=== PATIENT | female | born 1965 | race Caucasian/White ===

== ENCOUNTER 2019-01-14 11:31 | Day surgery (SDC) | payer BC ==
--- NOTE | 2019-01-14 09:20 | HP ---
AMENDED REPORT: DATE OF SURGERY: 01/14/2019 HISTORY OF PRESENT ILLNESS: The patient is a 53 year-old with gallstones since 2006, recommended having cholecystectomy several years ago so she decided not to follow up. Recently she had increased symptoms, occasional nausea and vomiting. No specific food trigger. She has seen Dr. Moseley before. She is on some medication for auto-immune, hepatitis. The patient had liver biopsy in the past. She had some duct sclerosis in the past. PAST MEDICAL HISTORY: As above. PAST SURGICAL HISTORY: Hiatal hernia repair. Abdominal hernia repair x2 in the past. Liver biopsy in the past. Tonsillectomy. Exploration of the abdomen in the past. MEDICATIONS: Flexeril, Ambien, Ursodiol, Imuran, Ocaliva, vitamin D. ALLERGIES: DEMEROL. FAMILY HISTORY: Hypertension, Lupus. SOCIAL HISTORY: No smoking or alcohol abuse. REVIEW OF SYSTEMS: Fourteen systems reviewed per admission assessment. No chest pain or palpitations other systems negative or noncontributory as above and per preadmission questionnaire. She had recently had elevated alkaline phosphatase but otherwise normal bilirubin. PHYSICAL EXAMINATION: GENERAL: No acute distress. HEENT: Sclerae nonicteric. NECK: No JVD. CHEST: Equal excursion, nonlabored breathing. CVS: Regular rate and rhythm. ABDOMEN: Soft. No peritoneal signs. EXTREMITIES: No significant edema. NEURO: Alert, oriented, moving extremities symmetrically. No gross motor deficits noted. IMPRESSION: Symptomatic cholelithiasis, chronic cholecystitis. She has got some chronic liver disease. I feel she will benefit from cholecystectomy. She is high risk for complications given her history of cirrhosis, chronic liver disease and prior abdominal surgeries. She was explained the risk and benefits in detail not limited to bleeding or infection, risk of trocar injury or hernia, small risk of bowel, bladder or blood vessel injury, small risk of bile leak, bile duct injury, retained stone or sludge possibly requiring further procedure either open or ERCP, general risk of anesthesia, deep venous thrombosis, pulmonary embolism, pneumonia, perioperative risk of aches, pains, bloating, constipation and/or loose stools possibly even chronic in nature. She understands and agrees to the planned procedure, will proceed with laparoscopic cholecystectomy with possible open as an outpatient. She understands she is high risk of open procedure given her prior multiple surgeries and liver disease but not limited to.
[~2019-01-14 11:31] MED LIST: Lactated Ringers 1,000 ML IV ONE; MEFOXIN 2 GM PREMIX** 2 GM/50 ML ML IV ONE; MEFOXIN 2 GM PREMIX** 2 GM/50 ML ML IV SCH; Sensorcaine 0.25% 10 ML ONE
[2019-01-14] MEDS ORDERED: SUBLIMAZE 250 MCG/5 ML IV ONE (11:32)
[2019-01-14] MEDS ORDERED: BRIDION 200MG/2ML IV ONE (11:32)
[2019-01-14] MEDS ORDERED: APRESOLINE 20 MG/ML INJ IV ONE (11:32)
[2019-01-14] MEDS ORDERED: BREVIBLOC 100 MG/10 ML IV ONE (11:32)
[2019-01-14] MEDS ORDERED: Zemuron 100 MG/10 ML IV ONE (11:32)
[2019-01-14] MEDS ORDERED: Zofran 4 MG/2 ML VIAL IV ONE (11:32)
[2019-01-14] MEDS ORDERED: LOPRESSOR 5 MG/5 ML INJECTION IV ONE (11:32)
[2019-01-14] MEDS ORDERED: DIPRIVAN 200 MG/20 ML IV ONE (11:32)
[2019-01-14] MEDS ORDERED: SUBLIMAZE 100 MCG/2 ML IV ONE (11:32)
[2019-01-14] MEDS ORDERED: Versed 2 MG/2 ML Injection IV ONE (11:32)
[2019-01-14] MEDS: Lactated Ringers 1,000 ML IV SCH ×2 (11:47→23:04)
[2019-01-14 12:18] LABS: ALBUMIN 4.4 g/dL (3.5-5.0); ANION GAP 14.6 MEQ/L (5-15); BILIRUBIN,TOTAL 0.6 mg/dL (0.2-1.3); Calcium 10.5 mg/dL (8.4-10.2); Creatinine 1 1.04 mg/dL (0.52-1.04); Potassium 4.3 mmol/L (3.5-5.1); Total Protein 8.5 g/dL (6.3-8.2)
[2019-01-14 12:23] LABS: INR 0.98 (0.8-3.0); PROTIME 11.1 SECONDS (9.95-12.35)
[2019-01-14] MEDS ORDERED: SUBLIMAZE 100 MCG/2 ML ONE (15:38)
[2019-01-14] MEDS ORDERED: Zofran 4 MG/2 ML VIAL ONE (15:38)
[2019-01-14] MEDS ORDERED: DILAUDID 2 MG INJECTION ONE (15:39)
--- NOTE | 2019-01-14 15:55 | OP ---
SURGERY DATE/TIME: 01/14/2019 1345 PREOPERATIVE DIAGNOSES: 1) Symptomatic cholelithiasis, chronic cholecystitis. 2) History of chronic liver disease. 3) Obesity. 4) History of prior multiple abdominal surgeries. POSTOPERATIVE DIAGNOSES: 1) Symptomatic cholelithiasis, chronic cholecystitis. 2) History of chronic liver disease. 3) Obesity. 4) History of prior multiple abdominal surgeries. 5) Extensive intra-abdominal adhesions. PROCEDURE: 1) Laparoscopic lysis of adhesions. 2) Laparoscopic cholecystectomy. SURGEON: Dr. Curtis Ryan. ANESTHESIA: General. ESTIMATED BLOOD LOSS: Minimal. INDICATIONS: As noted above. Risks and benefits explained in detail but not limited to and consent obtained. DESCRIPTION OF PROCEDURE AND FINDINGS: The patient was taken to the operating room. General anesthesia induced. Abdomen prepped and draped in the usual sterile fashion. Going just to the left of the prior midline incision, a small transverse incision made. Fascia grasped and pulled upward. Veress needle inserted and tested with saline. Pneumoperitoneum accomplished insufflating opening pressure of 0-15. Once this was accomplished, a 5 mm bladeless port and camera inserted in the right upper quadrant. There was no evidence of any intra-abdominal injury secondary to trocar insertion. Another 5 mm right upper quadrant port and 11 mm epigastric port was later switched to a 12 mm epigastric port. The 5 mm port was placed lateral to the patient's prior mesh hernia repair mid abdomen supraumbilical hernia. The patient had extensive intra-abdominal adhesions. Slowly and carefully omentum plastered up against the chronic liver disease, this is slowly and carefully taken down finally allowing access to chronically inflamed gallbladder this was able to grasped and mobilized upwards however this took another hour of dissection time. Dissection carried posterior, lateral to anterior fashion. There is concrete reaction. She had known gallbladder disease back in 2006, I think she mentioned. Slowly and carefully the cystic duct/infundibular junction slowly and carefully well skeletonized until critical view obtained both anteriorly and posteriorly. Once this was accomplished we elected to use a large clip given extensive inflammatory reaction. A 12 port placed in the epigastrium. Large clip was used clipping the cyst duct and dividing in usual fashion. After the critical view was obtained both anterior and posteriorly, main cystic artery directly on the gallbladder was isolated, clipped x3 and divided. Gallbladder slowly and carefully dissected free from its dense almost concrete attachments to the liver bed staying directly on the gallbladder wall clipping additional oozing side branches off the cystic artery, cystic veins as necessary around the gallbladder wall. Just prior to releasing from final attachments to anterior edge of the liver, there was another duct along the anterior edge of the liver, this was additionally clipped. Just prior to releasing from final attachments to anterior edge of the liver the liver bed re-inspected. Clips noted in place cystic duct and cystic artery stumps. There were no signs of any active bleeding or bile leakage. It was felt there was no benefit from drain placement. Gallbladder released from final attachments anterior edge of the liver placed in a Pleatman sac. Fascia in the epigastrium slightly spread to allow the Pleatman sac and gallbladder to be pulled free and passed off. Port is replaced. Copious amount of irrigation accomplished lateral to the liver and subhepatic space irrigating until clear. Liver bed re-inspected. Clips noted in place in cystic artery and cystic artery stumps. There are no signs of any bleeding or bile leakage. It was felt there was no benefit from drain placement. Clips noted to be in place in cystic duct stump. Looking back at original Veress needle port had been placed there did not appear to be any evidence of any issue secondary to trocar or Veress needle placement. Fascial defect in the epigastrium 12 mm site closed with puncture closure device with #1 Vicryl and additional 0 Vicryl was also placed externally. Pneumoperitoneum decompressed. The wound was irrigated out. Skin incision closed with 4-0 Vicryl. Steri-Strips and sterile dressing applied. 0.25% Marcaine local injected along the skin incision fascial defect at the beginning of the procedure. There were no immediate complications. I will see if there is family in waiting area to discuss the findings with otherwise will see her back in the office next week.
[2019-01-14] MEDS ORDERED: Phenergan 25 MG INJ IV ONE (17:47)
[2019-01-14] MEDS ORDERED: Phenergan 25 MG INJ ONE (17:50)
[2019-01-14] MEDS ORDERED: Ambien 10 MG PO PRN (19:24)
[2019-01-14] MEDS ORDERED: MORPHINE SULFATE 4 MG INJ IV PRN (19:25)
[2019-01-14] MEDS ORDERED: Zofran 4 MG/2 ML VIAL IV PRN (19:26)
[2019-01-14] MEDS: NORCO 5/325 MG PO PRN (23:03)
[2019-01-15] MEDS: NORCO 5/325 MG PO PRN (06:08)
[2019-01-15] MEDS ORDERED: Cyclobenzaprine 10 MG PO PRN (06:58)
[2019-01-15] MEDS ORDERED: MEDICATION INTERVENTION MC SCH ×3 (07:15→10:00)
[2019-01-15 09:11] VITALS: BP 121/71; PULSE 108; O2SAT 93
[2019-01-15] MEDS ORDERED: AZATHIOPRINE 50 MG PO SCH (10:00)
[2019-01-15] MEDS ORDERED: OBETICHOLIC ACID 5 MG PO SCH (10:00)
[2019-01-15] MEDS ORDERED: THERAGRAN MULTIVITAMIN PO SCH (10:00)
[2019-01-15] MEDS ORDERED: VITAMIN D PO SCH (10:00)
[2019-01-15] MEDS ORDERED: NON-FORMULARY ITEM (Multivitamin [Multivitamins] 1 EACH) PO SCH (10:00)
[2019-01-15] MEDS ORDERED: ERGOCALCIFEROL 2000 UNIT PO SCH (10:00)
[2019-01-15] MEDS ORDERED: URSODIOL PO SCH (10:00)
== END 2019-01-15 09:40 | disposition home or self-care (01) ==
LOC: SDC 11:31 → MED SURG 18:40 → SDC 01-15 09:40
PROVIDERS: ATTEND Surgery
DX: K80.10 Calculus of gallbladder with chronic cholecystitis without obstruction (principal); K66.0 Peritoneal adhesions (postprocedural) (postinfection); R42 Dizziness and giddiness; K91.0 Vomiting following gastrointestinal surgery; E66.9 Obesity, unspecified; Z68.42 Body mass index [BMI] 45.0-49.9, adult; Z87.19 Personal history of other diseases of the digestive system
CPT/HCPCS: 36415; 80053; 85610; 93005; J0360; J0694; J1170; J2250; J2270; J2405; J2550; J2704; J3010; A9270-GY